=== PATIENT | female | born 1980 | race Caucasian/White ===

== ENCOUNTER 2017-01-31 21:56 | Emergency (ER) | payer OTHER ==
[~2017-01-31] VITALS: Ht 175.3 cm; Wt 72.0 kg
[~2017-01-31 21:56] MED LIST: BUSP10 PO
[2017-01-31 21:59] VITALS: BP 120/74; PULSE 66; RESP 16; TEMP 98.5; O2SAT 99
[2017-01-31] MEDS ORDERED: IBUPROFEN 600 MG TAB PO ONE (22:45)
[2017-01-31] MEDS ORDERED: ACETAMINOPHEN/HYDROcodone 325 MG/5 MG TAB PO ONE (22:45)
--- NOTE | 2017-01-31 22:54 | PD ---
HPI Chief Complaint: Injury Time Seen by Provider: 22:49 Travel History International Travel<30 days: No Contact w/Intl Traveler<30days: No Traveled to known affect area: No History of Present Illness HPI 36-year-old [id number] white female presents to emergency department complaints of right elbow pain. She states over the past week she has noted increasing pain and swelling to her elbow. She was sent home from work today because of inability to perform her duties. She states that she noticed an area of ecchymosis to the back of her right elbow. She does not recall any trauma or injury. She states that although she is right handed she does a lot of activities with her left hand. She does not perform any repetitive activities with the right hand. She has not had any history of elbow problems. She denies any history of connective tissue disorders. No recent illness. Denies any numbness, tingling. She does complain of some weakness due to pain. Pain is moderate but can be severe with palpation and movement. PFSH Past Medical History Narrative Medical Anxiety, depression, SVT, endometriosis, lower back pain with lumbar herniated disc Anemia: Yes Autoimmune Disease: No Blood Disorders: No Anxiety: Yes Depression: Yes Cardiovascular Problems: Yes (SVT) Diminished Hearing: No Endocrine: No Gastrointestinal Disorders: No Genitourinary: No Headaches: Yes (X 2 DAYS) Immune Disorder: No Musculoskeletal: Yes (Bulging disc L4-S1 ) Neurologic: Yes Psychiatric: No Reproductive: Yes (ENDOMETRIOSIS) Respiratory: No Immunizations Current: Yes Migraines: Yes Sickle Cell Disease: No Tetanus Vaccination: < 5 Years ?: Not LMP: 01/09/17 : 3 Para: 2 Miscarriage: 1 Dilation and Curettage (D&C): Yes Tubal Ligation: Yes Past Surgical History Narrative Surgical Tonsillectomy, Laparoscopy for endometriosis, tubal location, hysterectomy Abdominal Surgery: Yes (LAP FOR ENDOMETROSIS) Gynecologic Surgery: Yes (Tubal Ligation ) Oral Surgery: Yes (TONSILLECTOMY 10/1997) Tonsillectomy: Yes (10/1997) Other Surgery: Yes Social History Alcohol Use: Yes (OCCAS.) Tobacco Use: Yes (1/2 PACK A DAY) Substance Use: No (DENIES) Allergies-Medications (Allergen,Severity, Reaction): Coded Allergies: No Known Allergies (Verified , 01/31/17) Reported Meds & Prescriptions Reported Meds & Active Scripts Active Reported Buspar 10 mg Tab (Buspirone HCl) 10 Mg Tab 10 Mg PO BID Review of Systems Except as stated in HPI: all other systems reviewed are Neg Physical Exam Narrative GENERAL: Well-developed, well-nourished in no apparent distress. Nontoxic appearing. HEAD: Normocephalic, atraumatic. EYES: Pupils equal round and reactive. Extraocular motions intact. No scleral icterus. No injection or drainage. ENT: Nose clear. Throat without erythema, tonsillar hypertrophy or exudate. Uvula midline. Airway patent. NECK: Trachea midline. Supple, nontender, moves head freely. No central bony tenderness or spasm. CARDIOVASCULAR: Regular rate and rhythm without murmurs, gallops, or rubs. RESPIRATORY: Clear to auscultation. Breath sounds equal bilaterally. No wheezes , rales, or rhonchi. GASTROINTESTINAL: Abdomen soft, non-tender, nondistended. No hepato-splenomegaly , or palpable masses. No guarding. EXTREMITIES: No clubbing, cyanosis. Examination of the right upper extremity reveals mild swelling in the right elbow. She has an area of ecchymosis of the distal upper arm just above the olecranon. She has diffuse tenderness in the elbow. There is no point tenderness. She complains of a with full supination as well as pronation. She has pain with full flexion but no pain with extension. She has intact sensation with good distal pulses. No pain in the hand, wrist. She does complain of some referred pain to the right elbow with movement of the wrist as well as shoulder. The skin is intact. There is no erythema or warmth. She has intact median/ulnar/radial nerves. The left upper extremity is unremarkable. BACK: Nontender without deformity. No flank tenderness. NEUROLOGICAL: Awake, alert and oriented x 3 .Cranial nerves grossly intact. Motor and sensory grossly within normal limits. Normal speech. Data Data Last Documented VS Vital Signs Date Time Temp Pulse Resp B/P Pulse Ox O2 Delivery O2 Flow Rate FiO2 01/31/17 21:59 98.5 66 16 120/74 99 Orders Elbow, Complete (4 Vws) (01/31/17 22:33) Ice/Cold Pack (01/31/17 22:33) Splint Or Brace Apply/Monitor (01/31/17 22:33) Acetamin-Hydrocod 325-5 Mg ([place] 5-325 (01/31/17 22:45) Ibuprofen (Motrin) (01/31/17 22:45) MDM Medical Decision Making Medical Screen Exam Complete: Yes Emergency Medical Condition: Yes Medical Record Reviewed: Yes Interpretation(s) Right elbow: Negative for acute bony injury. There is an incidental foreign body noted in the skin which is unrelated. Differential Diagnosis MDM: High Differential diagnoses: Fracture, sprain, strain, dislocation, contusion, neurovascular injury Narrative Course Patient's given Motrin 600 mg and Lortab 5 a grams by mouth. She is placed in a sling and given ice pack. This right elbow bursitis Diagnosis Primary Impression: Bursitis of right elbow Qualified Code: M70.21 - Olecranon bursitis of right elbow Patient Instructions: General Instructions, Narcotic given in the ED Departure Forms: Tests/Procedures, Work Release Special Instructions: No work 3 days. Then light duty with the right arm. No lifting greater than 5 pounds for one week. Additional Instructions: Rest. Elevation. Ice for the next few days. Use sling for comfort. Remove your arm from the sling and perform range of motion as we have discussed several times a day. Diclofenac and Lortab. Follow-up with your doctor in 1 week. Return to the ER for emergencies. Med/Other Pt SpecificInfo: Prescription(s) given Scripts Diclofenac Sodium DR 75 Mg Tabdr75 Mg PO BID #30 TAB Prov:Delta Root MD 01/31/17 Hydrocodone-Acetaminophen (Lortab)5-325 Mg Tab1 Tab PO Q8HR PRN (PAIN) #12 TAB Prov:Delta Root MD 01/31/17 Disposition: 01 DISCHARGE HOME Condition: Stable Tera Price Jan 31, 2017 22:54
[2017-01-31] MEDS ORDERED: DICL75TA PO (22:56)
[2017-01-31] MEDS ORDERED: HYDR-3533 PO (22:56)
--- NOTE | 2017-01-31 22:56 | RADRPT ---
EXAM DATE/TIME: 01/31/2017 22:53 [facility] COMPARISON: No previous studies available for comparison. INDICATIONS : Pain in right elbow for a week. MEDICAL HISTORY : None. SURGICAL HISTORY : None. ENCOUNTER: Initial ACUITY: 1 week PAIN SCORE: 5/10 LOCATION: Right elbow FINDINGS: Multiple view examination of the right elbow demonstrates soft tissue swelling posteriorly. Rounded d ensity and possible foreign body versus soft tissue calcification seen posteriorly. No joint effusion or fracture. CONCLUSION: Soft tissue swelling. Rounded density could represent a foreign body or soft tissue calcification. Danny Garrett MD on January 31, 2017 at 22:51 Board Certified Radiologist. This report was verified electronically.
== END 2017-01-31 23:15 | disposition home or self-care (01) ==
LOC: NEPK 21:56
DX: M70.21 Olecranon bursitis, right elbow (principal); I47.1 Supraventricular tachycardia; F17.210 Nicotine dependence, cigarettes, uncomplicated; X58.XXXA Exposure to other specified factors, initial encounter; Y92.9 Unspecified place or not applicable; Y99.0 Civilian activity done for income or pay
CPT/HCPCS: 73080; 99284

== ENCOUNTER 2017-03-03 21:20 | Emergency (ER) | payer OTHER ==
[~2017-03-03] VITALS: Ht 175.3 cm; Wt 73.2 kg
[~2017-03-03 21:20] MED LIST changes: +DICL75TA PO; +HYDR-3533 PO
[2017-03-03 21:56] VITALS: BP 114/78; PULSE 83; RESP 18; TEMP 98.5; O2SAT 100
[2017-03-03] MEDS ORDERED: ROBA750T PO (22:39)
[2017-03-03] MEDS ORDERED: IBUP-232 PO (22:39)
[2017-03-03] MEDS ORDERED: KETOROLAC TROMETHAMINE 60 MG/2 ML (IM) VIAL IM ONE (22:45)
[2017-03-03] MEDS ORDERED: ORPHENADRINE INJ 60 MG/2 ML AMP IM ONE (22:45)
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
== END 2017-03-03 22:55 | disposition home or self-care (01) ==
LOC: PHEFT 21:20
DX: S29.019A Strain of muscle and tendon of unspecified wall of thorax, initial encounter (principal); V89.2XXA Person injured in unspecified motor-vehicle accident, traffic, initial encounter; Y92.410 Unspecified street and highway as the place of occurrence of the external cause
CPT/HCPCS: 96372; 99284; J1885; J2360